=== PATIENT | female | born 1965 | race Caucasian/White ===

== ENCOUNTER 2016-06-07 11:27 | Emergency (ER) | payer BC ==
[2016-06-07 11:52] LABS: BASOPHILS 0.5 % (0.0-2.0); EOSINOPHILS 5.6 % (0-7); HEMATOCRIT 45.6 % (36.0-48.0); HEMOGLOBIN 15.3 g/dL (12-16); IMMATURE GRANULOCYTES 0.2 % (0-5); LYMPHOCYTES 34.2 % (15-50); MCH 31.9 pg (26.0-34.0); MCHC 33.6 g/dL (31.0-37.0); MEAN PLATELET VOLUME 9.9 fL (7.4-10.4); MONOCYTES 4.9 % (2-11); NEUTROPHILS 54.6 % (40-80); PLATELET COUNT 250 10x3/uL (130-400); RDW 13.2 % (11.5-14.5); WBC 9.5 10x3/uL (4.8-10.8)
[2016-06-07 12:20] LABS: ALBUMIN 3.8 g/dL (3.4-5.0); ALKALINE PHOSPHATASE 65 U/L (46-116); ALT (SGPT) 27 U/L (10-68); BILIRUBIN - TOTAL 0.56 mg/dL (0.2-1.3); CALC OSMOLALITY 270 mosm/kg (275-300); CHLORIDE - SERUM 100 mmol/L (98-107); CHOL - HDL RATIO 2.7 ratio (2.3-4.1); CHOLESTEROL, TOTAL 258 mg/dL (0-200); CKMB 0.4 U/L (0.0-3.6); CREATINE KINASE 61 UL (21-215); CREATININE - SERUM 0.6 mg/dL (0.6-1.3); GLUCOSE 101 mg/dL (74-106); HDL CHOLESTEROL 95 mg/dL (32-96); LDL CHOLESTEROL 120 mg/dL (0-100); LDL-HDL RATIO 1.3 ratio (1.5-3.5); POTASSIUM - SERUM 3.3 mmol/L (3.5-5.1); PROTEIN - SERUM 7.5 g/dL (6.4-8.2); SODIUM 136 mmol/L (136-145); TRIGLYCERIDE 219 mg/dL (30-200); UREA NITROGEN 11 mg/dL (7-18); eGFR NON AFRICAN AMERICAN > 90 mL/min (90-120)
[2016-06-07 12:27] LABS: TROPONIN-I < 0.017 ng/mL (0.000-0.060)
== END 2016-06-07 13:16 | disposition home or self-care (01) ==
LOC: D.ER 11:27
PROVIDERS: Emergency Medicine
DX: R07.9 Chest pain, unspecified (principal); I10 Essential (primary) hypertension

== ENCOUNTER → 2016-06-07 | Emergency (ER) | payer BC | END | disposition home or self-care (01) | LOC: CANPREER → D.ER 14:31 | DX: R07.9 Chest pain, unspecified (principal); I10 Essential (primary) hypertension ==

== ENCOUNTER 2017-03-31 05:16 | Day surgery (SDC) | payer BC ==
[2017-03-30 15:37] LABS: CALC OSMOLALITY 275 mosm/kg (275-300); CALCIUM 8.6 mg/dL (8.5-10.1); CARBON DIOXIDE 34.1 mmol/L (21.0-32.0); CHLORIDE - SERUM 97 mmol/L (98-107); CREATININE - SERUM 0.8 mg/dL (0.6-1.3); GLUCOSE 103 mg/dL (74-106); POTASSIUM - SERUM 3.4 mmol/L (3.5-5.1); SODIUM 138 mmol/L (136-145); UREA NITROGEN 13 mg/dL (7-18); eGFR NON AFRICAN AMERICAN 80 mL/min (90-120)
[~2017-03-31] VITALS: Ht 170.2 cm; Wt 82.6 kg
--- NOTE | ~2017-03-31 | OP ---
PATIENT NAME: NAYANA BARON MEDICAL RECORD: [id number] :63 LOCATION:[facility] ADMISSION DATE: SURGEON: TODD MCBRIDE MD DATE OF OPERATION: 03/31/2017 PREOPERATIVE DIAGNOSES: 1. Right inguinal hernia. 2. Hypertension. POSTOPERATIVE DIAGNOSES: 1. Right inguinal hernia. 2. Hypertension. PROCEDURE: Right inguinal hernia repair with extended PHS mesh. SURGEON: Todd Mcbride MD REPORT OF PROCEDURE: The patient's abdomen was prepped and draped in sterile fashion. An oblique incision was made above the inguinal ligament. Electrocautery was used to dissect through the subcutaneous tissue down to the external oblique fascia. This fascia was opened up using electrocautery to the external ring. Once we entered the inguinal canal, the patient had an incarcerated hernia that was superior and lateral to your typical inguinal opening. This had incarcerated fatty tissue present. I was eventually able to dissect down around the hernia sac at the fascial edges and once this was removed, I can see there was actually 2 small defects visible. This did not appear to be present from a previous incision site. The hernia defect was about a centimeter in greatest diameter and the smaller defect was maybe 0.5 cm in greatest diameter. This penetrated directly into the patient's abdominal cavity as I could see some bowel present underneath it. The inguinal floor was inspected. The round ligament was elevated and high ligated proximally and distally. The patient was noted to have a small indirect hernia defect present. The preperitoneal space of Retzius was opened up. There was a small opening in the inguinal floor. I got an extended piece of PHS mesh and I cut around the inferior aspect of the mesh to make the underlying mesh smaller. This was placed into the preperitoneal space of Retzius and fanned out in all directions. The mesh was then sutured down on all 4 sides using multiple interrupted 0 Vicryls. Prior to tacking down the mesh, the 2 hernia defects in the superior lateral aspect of the inguinal canal were closed using interrupted 0 Vicryls times 3. The mesh was then laid over top of this hernia defect and sutured into place with a 0 Vicryl. All of the hernias were completely covered with the mesh. We inspected the area and saw there was no sign of any bleeding. We then irrigated out the wound thoroughly with normal saline. The external oblique fascia was closed with running 2-0 Vicryl, Devon's was closed with interrupted 3-0 Vicryls, and the skin was closed with running subcutaneous 5-0 Monocryl. A 10 mL of 0.25% Marcaine with epinephrine was infused into the surrounding tissues, and the wounds were dressed appropriately. COMPLICATIONS: None. CONDITION: Stable. ANESTHESIA: General endotracheal and local. BLOOD LOSS: Minimal. OPERATIVE REPORT [id number] NAYANA BARON TRANSINT:[id number] Voice Confirmation ID: [id number] DOCUMENT ID: [id number] TODD MCBRIDE MD at 1123 CC: AYUSH MEDINA MD [id number] DICTATION DATE: 03/31/17 1153 MERCHANDISE PICKUP/RECEIVING ASSOCIATE: 03/31/17 1304 [facility] 03/31/17 [id number] [place] [address]
[~2017-03-31 05:16] MED LIST: AMBIEN10 MG PO; ASCORBIC ACID500 MG PO; FOLATE0.4 MG PO; HYDROCHLOROTHIA25 MG PO; HYDROCODON-ACE1 EAC7 PO; NEXIUM20 MG PO; ZESTRIL10 MG PO
[2017-03-31 06:18] LABS: BASOPHILS 0.8 % (0-2); EOSINOPHILS 4.2 % (0-7); HEMATOCRIT 45.6 % (36.0-48.0); HEMOGLOBIN 14.9 g/dL (12-16); IMMATURE GRANULOCYTES 0.1 % (0-5); LYMPHOCYTES 37.8 % (15-50); MCH 32.5 pg (26.0-34.0); MCHC 32.7 g/dL (31.0-37.0); MCV 99.3 fL (80.0-100.0); MEAN PLATELET VOLUME 10.5 fL (7.4-10.4); MONOCYTES 6.2 % (2-11); NEUTROPHILS 50.9 % (40-80); PLATELET COUNT 211 10x3/uL (130-400); RBC 4.59 10x6/uL (4.00-5.40); RDW 13.7 % (11.5-14.5); WBC 7.6 10x3/uL (4.8-10.8)
[2017-03-31 09:26] VITALS: BP 104/73; Ht 170.2 cm; Wt 82.6 kg
[2017-03-31 09:45] LABS: HCG URINE NEGATIVE (NEGATIVE)
[2017-03-31] MEDS ORDERED: HYDROCODON-ACE1 EAC7 PO (11:41)
== END 2017-03-31 14:45 | disposition home or self-care (01) ==
LOC: D.OPS 05:16 → D.PAN 10:45 → D.OPS 14:45
PROVIDERS: Surgery
DX: K40.90 Unilateral inguinal hernia, without obstruction or gangrene, not specified as recurrent (principal); I10 Essential (primary) hypertension; Z01.812 Encounter for preprocedural laboratory examination

== ENCOUNTER 2017-10-24 08:00 | Outpatient (CLI) | payer BC ==
[2017-03-31 09:26] VITALS: BMI 28.5
== END 2017-10-24 09:00 | disposition home or self-care (01) ==
LOC: D.MAMMO 08:00
DX: Z12.31 Encounter for screening mammogram for malignant neoplasm of breast (principal)

== ENCOUNTER → 2018-01-10 19:19 | Outpatient (CLI) | payer BC ==
[2017-03-31 09:26] VITALS: BMI 28.5
== END | disposition home or self-care (01) ==
LOC: D.MAMMO 09:00
DX: R92.8 Other abnormal and inconclusive findings on diagnostic imaging of breast (principal)

== ENCOUNTER → 2019-01-23 10:36 | Outpatient (CLI) | payer OTHER ==
[2017-03-31 09:26] VITALS: BMI 28.5
== END | disposition home or self-care (01) ==
LOC: D.HCCARDIO 10:36 → D.HCCECHO 11:30
PROVIDERS: ATTEND Internal Medicine Cardiovascular Disease
DX: R06.00 Dyspnea, unspecified (principal); I20.9 Angina pectoris, unspecified